=== PATIENT | female | born 1930 | race Caucasian/White ===

== ENCOUNTER 2018-01-08 16:28 | Emergency (ER) | payer OTHER ==
--- NOTE | 2018-01-08 16:38 | PDOC ---
Rapid Medical Evaluation Time Seen by Provider: 01/08/18 16:36 Medical Evaluation: 01/08/18 16:36 I have performed a brief in-person evaluation of this patient. The patient presents with a chief complaint of: Abd pain x 1 week w/ dizziness today. H/o HTN, osteoporosis, chronic KING Pertinent physical exam findings:stable I have ordered the following:ekg/labs The patient will proceed to the ED for further evaluation. Discharge Disposition - Diagnosis Abdominal pain Qualifiers: Abdominal location: epigastric Qualified Code(s): R10.13 - Epigastric pain - Referrals - Patient Instructions - Post Discharge Activity
[2018-01-08 16:39] VITALS: TEMP 98; BMI 17.3
[2018-01-08 17:17] LABS: BASO % 0.9 % (0-2.0); EOS % 2.8 % (0-4.5); HEMATOCRIT 44.5 % (32.4-45.2); HEMOGLOBIN 14.6 GM/dL (10.7-15.3); LYMPH % 37.7 % (8-40); MCH 30.4 pg (25.7-33.7); MCHC 32.7 g/dl (32.0-36.0); MEAN CELL VOLUME 92.8 fl (80-96); MEAN PLT VOLUME 7.2 fl (7.5-11.1); MONO % 9.7 % (3.8-10.2); NEUT % 48.9 % (42.8-82.8); PLATELET COUNT 242 K/MM3 (134-434)
--- NOTE | 2018-01-08 17:20 | PDOC ---
History of Present Illness - General Chief Complaint: Lightheaded Stated Complaint: FATIGUE Time Seen by Provider: 01/08/18 16:36 - History of Present Illness Initial Comments: 01/08/18 17:49 The patient is an 87 year old female with a history of HTN, Headache, Osteoarthritis who presents for evaluation of lightheadedness, headache, and abdominal pain. The patient is accompanied by family who assist in providing the history. They report a several day history of burning epigastric abdominal pain. The patient also has had intermittent headaches through this time and had an episode of lightheadedness when rising from sitting today prompting her presentation to the ED for further evaluation. The patient otherwise denies fevers, chills, SOB, chest pain, nausea, vomiting, or changes with urination or bowel movements. Past History - Past Medical History Allergies/Adverse Reactions: Allergies Allergy/AdvReac Type Severity Reaction Status Date / Time No Known Allergies Allergy Verified 01/08/18 16:39 Home Medications: Ambulatory Orders Acyclovir [Zovirax -] 800 mg PO TID 01/08/18 Amlodipine Besylate 5 mg PO DAILY 01/08/18 Carvedilol 25 mg PO DAILY 01/08/18 Diphenhydramine HCl 25 mg PO DAILY 01/08/18 - Suicide/Smoking/Psychosocial Hx Smoking History: Never smoked Have you smoked in the past 12 months: No Information on smoking cessation initiated: No Hx Alcohol Use: No Drug/Substance Use Hx: No Review of Systems - Review of Systems Comments:: 01/08/18 17:52 Constitutional: No fevers, chills, fatigue, malaise HEENT: No Rhinorrhea, nasal congestion, visual changes Cardiovascular: Lightheadedness, No chest pain, syncope, palpitations, Respiratory: No Cough, SOB, Hemoptysis, Gastrointestinal: Abdominal pain. No Nausea, Vomiting, Constipation, Diarrhea, Melena Genitourinary: No Dysuria, Frequency, Urgency, Hesitancy, Hematuria, Flank pain Musculoskeletal: No Myalgia, arthralgia Skin: No rashes, itching, bruising, pallor Neurologic: Headache. No Dizziness, Numbness, Weakness, or Tingling Psychiatric: No Hallucinations. No SI or HI *Physical Exam - Vital Signs Last Vital Signs Temp Pulse Resp BP Pulse Ox 98.0 F 77 16 153/86 100 01/08/18 16:37 01/08/18 16:37 01/08/18 16:37 01/08/18 16:37 01/08/18 16:37 - Physical Exam Comments: 01/08/18 18:13 General Appearance: Nourished. No Apparent Distress HEENT: EOMI, ANGELINE. No Pharyngeal Erythema, Tonsillar Exudate, Tonsillar Erythema Neck: No Cervical Lymphadenopathy Respiratory/Chest: Lungs Clear, Normal Breath Sounds. No Crackles, Rales, Rhonchi, Wheezing Cardiovascular: Regular Rhythm, Regular Rate. No Murmur, Gallops, Rubs Gastrointestinal/Abdominal: Normal Bowel Sounds, Soft. Mild epigastric tenderness to palpation. No Guarding, Rebound, Musculoskeletal: No CVA Tenderness Extremity: Normal Capillary Refill Integumentary: Normal Color, Dry, Warm Neurologic: network systems operator II-XII NML intact, Fully Oriented, Alert, Normal Mood/Affect, Normal Response, Motor Strength 5/5. Heart Score/ECG Review #1 ECG reviewed & interpreted by me at: 18:29 General ECG Interpretation: Sinus Rhythm, Normal Rate, Normal Intervals, No acute ischemic changes ED Treatment Course - LABORATORY CBC & Chemistry Diagram: 01/08/18 17:01 01/08/18 17:01 Medical Decision Making - Medical Decision Making 01/08/18 17:20 The patient is an 87 year old female with a history of HTN, Headache, Osteoarthritis who presents for evaluation of lightheadedness, headache, and abdominal pain. Given the patient's history and physical exam, we will obtain a cbc, cmp, lipase, troponin, ekg, head ct to evaluate further for possible etologies. We will treat the patient in the meantime with iv fluids, pepcid, tylenol and continue to monitor and reassess while here in the ed 01/08/18 17:21 CBC, cmp, lipase, troponin are unremarkable head CT is unremarkable as read by our radiologist. The patient reports improvement in her symptoms. We are comfortable discharging the patient home with primary care provider follow up. We discussed the results, plan, and return precautions with the patient and her family who voiced understanding and are agreeable with the plan. *DC/Admit/Observation/Transfer Diagnosis at time of Disposition: Lightheadedness Abdominal pain Qualifiers: Abdominal location: epigastric Qualified Code(s): R10.13 - Epigastric pain - Discharge Dispostion Disposition: HOME Condition at time of disposition: Stable Decision to Admit order: No - Referrals Referrals: Valentin Ricci MD [Primary Care Provider] - - Patient Instructions Printed Discharge Instructions: DI for Abdominal Pain-Adult, DI for Headache Additional Instructions: Please return to the ER if you experience concerning or worsening symptoms including worsening abdominal pain, headache, vomiting, or chest pain. Your lab results were normal here in the ED. Your head ct was normal here in the ED. Please call to schedule a follow up appointment with your primary care provider within 2-3 days to discuss your ER visit and further management of your symptoms. Print Language: ISRAELI - Post Discharge Activity
[2018-01-08] MEDS ORDERED: SODIUM CHLORIDE 1,000 ML IV STA (17:30)
[2018-01-08] MEDS ORDERED: FAMOTIDINE 20 MG/50 ML IVPB 20 MG/50 ML MG IVPB ONE ×2 (17:30→17:54)
[2018-01-08] MEDS ORDERED: ACETAMINOPHEN 1000 MG/100 ML VIAL (NON FORMULARY) IVPB ONE (17:32)
--- NOTE | 2018-01-08 17:43 | PDOC ---
Attending Attestation - Resident Resident Name: Elbert Lucianoel - ED Attending Attestation I have performed the following: I have examined & evaluated the patient, The case was reviewed & discussed with the resident, I agree w/resident's findings & plan, Exceptions are as noted - HPI HPI: 01/08/18 17:36 87y F hx of htn, presents with complaint of feeling lightheaded and abdominal pain. pt endorses burning epigastric pain for several days, also endorses mild headaches that are intermittent for the past 4 or 5 days, that are pressure like on the front of her skull but resolve without any treatment. pt denies any associated n/v, blurry vision, double vision, dysarhtria. Pt saw a neurologist but pt states 'they didnt do anything'. The pt also endorses feeling intermittently lightheaded when she stands up htat lasts for a few minutes befor resolving, also without assoicated neuro symptoms. Regarding her epigastric pain, shee stats it is burning in nature, typically worse in the morning and after she eats, denies any associated sob, n/v, diaphoresis, palpitations, cp, back pain, worsening on exertion, leg swelling. Pt denies any dysuria, hematuria, diarrhea, bpr, melena. on exam pt well appearing in no distress card: rrr, no mrg pulm: cta b/l neuro: no facial assymetric, EOMI, strength 5/5 in upper/lower extremities, sensation symmetric in all 4 extermities ent: normal TMs b/l ddx: tension headache, dehdyration epigastric pain - possible gastritis dizziness - ? possible dehydration will obtain head ct, labs including cbc, cmp, trop, ekg, will give tylenol, fluids, pepcid will reassess
[2018-01-08 17:48] LABS: ANION GAP 6 (8-16); BILIRUBIN,TOTAL 0.4 mg/dL (0.2-1.0); BLOOD UREA NITROGEN 11 mg/dL (7-18); CALCIUM 9.5 mg/dL (8.5-10.1); CHLORIDE 108 mmol/L (98-107); CO2 30 mmol/L (21-32); CREATININE 0.9 mg/dL (0.55-1.02); GLUCOSE,RANDOM 113 mg/dL (74-106); POTASSIUM 5.1 mmol/L (3.5-5.1); SGOT/AST 35 U/L (15-37); SGPT/ALT 43 U/L (12-78); SODIUM 144 mmol/L (136-145); TOT PROT 7.6 g/dl (6.4-8.2)
[2018-01-08 17:51] LABS: ALK PHOS 78 U/L (45-117)
[2018-01-08 17:52] LABS: URINE APPEARANCE CLEAR; URINE BILIRUBIN NEGATIVE (<2.0 mg/dL); URINE COLOR COLORLESS; URINE GLUCOSE (UA) NEGATIVE (NEGATIVE); URINE KETONE NEGATIVE (NEGATIVE); URINE LEUK ESTERASE TRACE (NEGATIVE); URINE NITRITE NEGATIVE (NEGATIVE); URINE PROTEIN NEGATIVE (NEGATIVE); URINE UROBILINOGEN NEGATIVE mg/dL (0.2-1.0)
[2018-01-08] MEDS ORDERED: ACETAMINOPHEN INJECTION 100 ML IVPB ONE (17:54)
[2018-01-08 17:56] LABS: LIPASE 354 U/L (73-393)
[2018-01-08 17:58] LABS: EPI CELLS RARE /HPF (FEW); URINE MUCUS RARE
[2018-01-08 19:07] VITALS: BP 152/86; PULSE 76
--- NOTE | 2018-01-10 10:12 | EKG ---
Test Reason : Blood Pressure : / mmHG Vent. Rate : 077 BPM Atrial Rate : 077 BPM P-R Int : 186 ms QRS Dur : 066 ms QT Int : 370 ms P-R-T Axes : 065 053 043 degrees QTc Int : 418 ms NORMAL SINUS RHYTHM NORMAL ECG NO PREVIOUS ECGS AVAILABLE Confirmed by JESSICA MOSER MD ([id number]) on 01/10/2018 10:12:24 AM Referred By: Confirmed By:JESSICA MOSER MD
== END 2018-01-08 19:22 | disposition home or self-care (01) ==
LOC: JER 16:28
PROC: 3E033GC Introduction of Other Therapeutic Substance into Peripheral Vein, Percutaneous Approach (ICD-10-PCS; principal; 2018-01-08)
PROC: 3E033NZ Introduction of Analgesics, Hypnotics, Sedatives into Peripheral Vein, Percutaneous Approach (ICD-10-PCS; 2018-01-08)
DX: R10.13 Epigastric pain (principal); R42 Dizziness and giddiness; I10 Essential (primary) hypertension; M81.0 Age-related osteoporosis without current pathological fracture
CPT/HCPCS: 36415; 70450-TC; 80053; 81003; 81015; 82550; 83690; 84484; 85025; 93005; 93010; 96365; 96375; 99283-25; J0131; J7030

== ENCOUNTER 2020-05-30 10:59 | Emergency (ER) | payer OTHER ==
[2020-05-30 11:24] VITALS: TEMP 98.6; BMI 19.8
[2020-05-30 11:35] LABS: BASO % 1.6 % (0-2.0); EOS % 2.3 % (0-4.5); HEMATOCRIT 45.3 % (32.4-45.2); HEMOGLOBIN 14.7 GM/dL (10.7-15.3); LYMPH % 42.2 % (8-40); MCH 29.9 pg (25.7-33.7); MCHC 32.4 g/dl (32.0-36.0); MEAN CELL VOLUME 92.1 fl (80-96); MEAN PLT VOLUME 7.3 fl (7.5-11.1); MONO % 11.9 % (3.8-10.2); PLATELET COUNT 240 K/MM3 (134-434); RBC 4.92 M/mm3 (3.60-5.2); RDW 15.9 % (11.6-15.6); WHITE BLOOD COUNT 3.5 K/mm3 (4.0-10.0)
[2020-05-30 11:41] LABS: INR 0.93 (0.83-1.09); PROTHROMBIN TIME (PATIENT) 11.5 SEC (9.7-13.0)
[2020-05-30 11:44] LABS: ACTIVATED PTT 29.4 SECONDS (25.2-36.5)
[2020-05-30 11:56] LABS: CHLORIDE 108 mmol/L (98-107); POTASSIUM 4.6 mmol/L (3.5-5.1); SODIUM 141 mmol/L (136-145)
[2020-05-30 11:58] LABS: CALCIUM 9.6 mg/dL (8.5-10.1)
[2020-05-30 11:59] LABS: ANION GAP 3 MMOL/L (8-16); BLOOD UREA NITROGEN 15.2 mg/dL (7-18); CO2 30 mmol/L (21-32); GLUCOSE,RANDOM 89 mg/dL (74-106); MAGNESIUM 2.2 mg/dL (1.8-2.4)
[2020-05-30 12:02] LABS: CREATININE 0.8 mg/dL (0.55-1.3); SGOT/AST 47 U/L (15-37)
[2020-05-30 12:03] LABS: SGPT/ALT 51 U/L (13-61)
[2020-05-30 12:04] LABS: BILIRUBIN,TOTAL 0.4 mg/dL (0.2-1); TOT PROT 7.4 g/dl (6.4-8.2)
[2020-05-30 12:05] LABS: ALK PHOS 89 U/L (45-117)
[2020-05-30 13:10] VITALS: BP 140/75; PULSE 94
[2020-05-30 14:43] LABS: PH,URINE 7.5 (5.0-8.0); URINE APPEARANCE CLEAR; URINE BILIRUBIN NEGATIVE (NEGATIVE); URINE COLOR YELLOW; URINE GLUCOSE (UA) NEGATIVE (NEGATIVE); URINE KETONE NEGATIVE (NEGATIVE); URINE LEUK ESTERASE NEGATIVE (NEGATIVE); URINE NITRITE NEGATIVE (NEGATIVE); URINE PROTEIN NEGATIVE (NEGATIVE); URINE UROBILINOGEN 0.2 mg/dL (0.2-1.0)
== END 2020-05-30 14:37 | disposition home or self-care (01) ==
LOC: JER 10:59
DX: I44.7 Left bundle-branch block, unspecified (principal); R94.31 Abnormal electrocardiogram [ECG] [EKG]
CPT/HCPCS: 36415; 71045-TC-FY; 80053; 81003; 82550; 83735; 84484; 85025; 85610; 85730; 87077; 87086; 93005; 93010; 99285-25

== ENCOUNTER 2020-11-03 02:10 | Inpatient (IN) | payer MEDICARE, OTHER ==
[2020-11-03 02:26] VITALS: BMI 21.4
[2020-11-03] MEDS ORDERED: LACTATED RINGERS SOLUTION 1000 ML INFUS.BAG IV STA (02:47)
[2020-11-03] MEDS ORDERED: DEXAMETHASONE SOD PHOSPHATE 10 MG/1 ML VIAL IVPUSH ONE (02:48)
[2020-11-03] MEDS ORDERED: MAGNESIUM SULF 50% (8.12 MEQ/2 ML-1 GM VIAL) IVPB ONE (02:52)
[2020-11-03] MEDS ORDERED: ACETAMINOPHEN 1000 MG/100 ML VIAL (NON FORMULARY) IVPB ONE (02:53)
[2020-11-03] MEDS ORDERED: SODIUM CHLORIDE 0.9% 500 ML INFUS.BAG IV ONE ×2 (02:53→02:55)
[2020-11-03] MEDS ORDERED: DEXAMETHASONE SOD PHOSPHATE 10 MG/1 ML VIAL ONE (02:56)
[2020-11-03] MEDS ORDERED: ACETAMINOPHEN INJECTION 100 ML IVPB ONE (02:56)
[2020-11-03 03:06] LABS: VENOUS PCO2 43.6 mmHg (38-52); VENOUS PH 7.322 (7.310-7.410)
[2020-11-03] MEDS ORDERED: ASPIRIN 81 MG CHEWABLE TABLETS PO ONE (03:11)
[2020-11-03 03:15] LABS: BASO % 0.4 % (0-2.0); HEMOGLOBIN 15.2 GM/dL (10.7-15.3); LYMPH % 19.8 % (8-40); MCHC 33.1 g/dl (32.0-36.0); MEAN CELL VOLUME 93.6 fl (80-96); MEAN PLT VOLUME 8.2 fl (7.5-11.1); MONO % 11.3 % (3.8-10.2); NEUT % 67.5 % (42.8-82.8); PLATELET COUNT 269 K/MM3 (134-434); RBC 4.92 M/mm3 (3.60-5.2); RDW 16.1 % (11.6-15.6); WHITE BLOOD COUNT 5.8 K/mm3 (4.0-10.0)
[2020-11-03 03:18] LABS: CALCIUM 8.7 mg/dL (8.5-10.1)
[2020-11-03 03:19] LABS: ALBUMIN 3.8 g/dl (3.4-5.0); BLOOD UREA NITROGEN 14.3 mg/dL (7-18)
[2020-11-03 03:21] LABS: BILIRUBIN,DIRECT 0.2 mg/dL (0.0-0.2); INR 0.99 (0.83-1.09); PROTHROMBIN TIME (PATIENT) 12.2 SEC (9.7-13.0)
[2020-11-03 03:22] LABS: CREATININE 0.9 mg/dL (0.55-1.3)
[2020-11-03 03:23] LABS: BILIRUBIN,TOTAL 0.8 mg/dL (0.2-1)
[2020-11-03 03:24] LABS: ACTIVATED PTT 28.8 SECONDS (25.2-36.5); LACTIC ACID 2.1 mmol/L (0.4-2.0); TOT PROT 7.1 g/dl (6.4-8.2)
[2020-11-03] MEDS ORDERED: MAGNESIUM SULFATE IN WATER 2 GM/50 ML IVPB IVPB ONE (03:31)
[2020-11-03] MEDS ORDERED: morphine SULFATE 4 MG/ML VIAL ONE (03:35)
[2020-11-03] MEDS ORDERED: morphine CARPU-JECT 4 MG/1 ML DISP.SYRIN IVPUSH ONE (03:35)
[2020-11-03 04:58] LABS: URINE APPEARANCE CLEAR; URINE BILIRUBIN NEGATIVE (NEGATIVE); URINE COLOR YELLOW; URINE GLUCOSE (UA) NEGATIVE (NEGATIVE); URINE KETONE NEGATIVE (NEGATIVE)
[2020-11-03 04:59] LABS: URINE LEUK ESTERASE NEGATIVE (NEGATIVE); URINE NITRITE NEGATIVE (NEGATIVE); URINE PROTEIN 2+ (NEGATIVE); URINE UROBILINOGEN 0.2 mg/dL (0.2-1.0)
[2020-11-03 05:00] LABS: EPI CELLS 255 /uL (0-25.1); HYALINE CASTS 34 /uL (0-3.1); URINE BACTERIA 290 /uL (0-1359); URINE WBC 45 /uL (0-25.8)
[2020-11-03] MEDS ORDERED: ASPIRIN 81 MG CHEWABLE TABLETS ONE (05:03)
[2020-11-03 05:27] LABS: URINE RBC 162 /uL (0-23.9)
[2020-11-03] MEDS ORDERED: VANCOMYCIN 1,000 MG in DEXTROSE 5%-WATER - 250 ML IVPB ONE (06:02)
[2020-11-03] MEDS ORDERED: PIPERACILLIN/TAZOB 4.5 GM 4.5 GM in DEXTROSE 5%-WATER 100 ML IVPB ONE (06:02)
[2020-11-03] MEDS ORDERED: PIPERACILLIN/TAZOB 4.5 GM 4.5 GM/100 ML BAG IVPB ONE (06:07)
[2020-11-03] MEDS ORDERED: FUROSEMIDE 40 MG/4 ML INJECTABLE VIAL IVPUSH ONE (06:15)
[2020-11-03] MEDS ORDERED: FUROSEMIDE 40 MG/4 ML INJECTABLE VIAL ONE ×2 (06:33→10:30)
[2020-11-03] MEDS ORDERED: VANCOMYCIN 1 GRAM (PRE-DOCKED) 1,000 MG/250 ML BAG IVPB ONE (06:53)
[2020-11-03] MEDS: FUROSEMIDE 40 MG/4 ML INJECTABLE VIAL IVPUSH SCH ×2 (07:30→10:29)
[2020-11-03] MEDS ORDERED: MORPHINE SULFATE 2 MG/ML VIAL IVPUSH PRN (14:02)
[2020-11-03] MEDS ORDERED: HEPARIN NA (PORCINE) 5,000 UNITS/ML 1ML VIAL ONE (14:26)
[2020-11-03] MEDS: HEPARIN NA (PORCINE) 5,000 UNITS/ML 1ML VIAL SQ SCH ×2 (14:35→23:21)
[2020-11-03] MEDS ORDERED: PIPERACILLIN/TAZOB 3.375 GM 3.375 GM/50 ML BAG IVPB ONE (17:47)
[2020-11-03] MEDS ORDERED: PIPERACILLIN/TAZOB 3.375 GM 3.375 GM in DEXTROSE 5%-WATER - 50 ML IVPB SCH (18:00)
[2020-11-03] MEDS: PIPERACILLIN/TAZOB 3.375 GM 3.375 GM in DEXTROSE 5%-WATER - 50 ML IVPB SCH (18:38)
[2020-11-04] MEDS ORDERED: PIPERACILLIN/TAZOBACTAM 3.375 GM VIAL IVPB ONE ×2 (02:18→09:08)
[2020-11-04] MEDS ORDERED: DEXTROSE 5%-WATER - 50 ML IVPB ONE ×2 (02:18→09:08)
[2020-11-04] MEDS: PIPERACILLIN/TAZOB 3.375 GM 3.375 GM in DEXTROSE 5%-WATER - 50 ML IVPB SCH ×2 (02:44→09:55)
[2020-11-04] MEDS: HEPARIN NA (PORCINE) 5,000 UNITS/ML 1ML VIAL SQ SCH ×3 (06:14→21:10)
[2020-11-04 07:49] LABS: BASO % 0.4 % (0-2.0); EOS % 0.1 % (0-4.5); HEMATOCRIT 45.8 % (32.4-45.2); HEMOGLOBIN 15.1 GM/dL (10.7-15.3); LYMPH % 13.2 % (8-40); MCH 30.6 pg (25.7-33.7); MEAN PLT VOLUME 8.4 fl (7.5-11.1); MONO % 12.6 % (3.8-10.2); NEUT % 73.7 % (42.8-82.8); PLATELET COUNT 276 K/MM3 (134-434); RBC 4.93 M/mm3 (3.60-5.2); RDW 16.1 % (11.6-15.6); WHITE BLOOD COUNT 13.1 K/mm3 (4.0-10.0)
[2020-11-04 08:11] LABS: ALBUMIN 3.8 g/dl (3.4-5.0); BLOOD UREA NITROGEN 16.2 mg/dL (7-18); CALCIUM 8.7 mg/dL (8.5-10.1); MAGNESIUM 2.5 mg/dL (1.8-2.4)
[2020-11-04 08:15] LABS: BILIRUBIN,TOTAL 0.7 mg/dL (0.2-1); CREATININE 1.1 mg/dL (0.55-1.3); TOT PROT 7.3 g/dl (6.4-8.2)
[2020-11-04 08:16] LABS: PHOSPHOROUS 3.4 mg/dL (2.5-4.9)
[2020-11-04] MEDS: FUROSEMIDE 40 MG/4 ML INJECTABLE VIAL IVPUSH SCH (09:54)
[2020-11-04] MEDS ORDERED: LOSARTAN POTASSIUM 50 MG TABLET PO SCH (10:00)
[2020-11-05 04:09] LABS: SARS-CoV-2 NAA Not Detected (Not Detected)
[2020-11-05] MEDS: HEPARIN NA (PORCINE) 5,000 UNITS/ML 1ML VIAL SQ SCH ×3 (06:53→22:29)
[2020-11-05] MEDS: LOSARTAN POTASSIUM 50 MG TABLET PO SCH (09:50)
[2020-11-05] MEDS: FUROSEMIDE 40 MG/4 ML INJECTABLE VIAL IVPUSH SCH (09:50)
[2020-11-05] MEDS: POLYETHYLENE GLYCOL 3350 119 GM BTL PO SCH (11:48)
[2020-11-05] MEDS: ACETAMINOPHEN 325 MG TABLET (FP) PO PRN (22:29)
[2020-11-06] MEDS: HEPARIN NA (PORCINE) 5,000 UNITS/ML 1ML VIAL SQ SCH ×3 (06:53→22:32)
[2020-11-06 07:21] LABS: BASO % 1.1 % (0-2.0); EOS % 3.2 % (0-4.5); HEMATOCRIT 45.4 % (32.4-45.2); HEMOGLOBIN 14.9 GM/dL (10.7-15.3); LYMPH % 25.8 % (8-40); MCH 30.4 pg (25.7-33.7); MCHC 32.7 g/dl (32.0-36.0); MEAN CELL VOLUME 93.1 fl (80-96); MEAN PLT VOLUME 8.4 fl (7.5-11.1); MONO % 12.1 % (3.8-10.2); NEUT % 57.8 % (42.8-82.8); PLATELET COUNT 240 K/MM3 (134-434); RBC 4.88 M/mm3 (3.60-5.2); WHITE BLOOD COUNT 5.1 K/mm3 (4.0-10.0)
[2020-11-06 07:55] LABS: CALCIUM 8.5 mg/dL (8.5-10.1)
[2020-11-06 07:56] LABS: BLOOD UREA NITROGEN 20.4 mg/dL (7-18)
[2020-11-06 07:59] LABS: CREATININE 0.8 mg/dL (0.55-1.3)
[2020-11-06 08:00] LABS: BILIRUBIN,TOTAL 0.6 mg/dL (0.2-1); TOT PROT 5.9 g/dl (6.4-8.2)
[2020-11-06] MEDS: POLYETHYLENE GLYCOL 3350 119 GM BTL PO SCH (09:37)
[2020-11-06] MEDS: FUROSEMIDE 40 MG/4 ML INJECTABLE VIAL IVPUSH SCH ×2 (09:37→17:31)
[2020-11-06] MEDS: LOSARTAN POTASSIUM 50 MG TABLET PO SCH (09:37)
[2020-11-06] MEDS: ATORVASTATIN CA 10 MG TABLET (FP) PO SCH (22:32)
[2020-11-07] MEDS: FUROSEMIDE 40 MG/4 ML INJECTABLE VIAL IVPUSH SCH ×2 (06:58→18:09)
[2020-11-07] MEDS: HEPARIN NA (PORCINE) 5,000 UNITS/ML 1ML VIAL SQ SCH ×3 (06:58→21:37)
[2020-11-07 08:06] LABS: CALCIUM 8.4 mg/dL (8.5-10.1)
[2020-11-07 08:07] LABS: ALBUMIN 3.3 g/dl (3.4-5.0); BLOOD UREA NITROGEN 20.4 mg/dL (7-18)
[2020-11-07 08:09] LABS: CREATININE 0.8 mg/dL (0.55-1.3)
[2020-11-07 08:10] LABS: BILIRUBIN,TOTAL 0.5 mg/dL (0.2-1); TOT PROT 6.3 g/dl (6.4-8.2)
[2020-11-07] MEDS: LOSARTAN POTASSIUM 50 MG TABLET PO SCH (09:41)
[2020-11-07] MEDS: POLYETHYLENE GLYCOL 3350 119 GM BTL PO SCH (09:41)
[2020-11-07 16:08] LABS: HEP B CORE AB, TOT Positive (Negative)
[2020-11-07] MEDS: ATORVASTATIN CA 10 MG TABLET (FP) PO SCH (21:37)
[2020-11-08] MEDS: HEPARIN NA (PORCINE) 5,000 UNITS/ML 1ML VIAL SQ SCH ×3 (07:00→22:42)
[2020-11-08] MEDS: FUROSEMIDE 40 MG/4 ML INJECTABLE VIAL IVPUSH SCH ×2 (07:00→17:24)
[2020-11-08 08:30] LABS: CALCIUM 8.8 mg/dL (8.5-10.1)
[2020-11-08 08:31] LABS: ALBUMIN 3.3 g/dl (3.4-5.0)
[2020-11-08 08:34] LABS: CREATININE 0.7 mg/dL (0.55-1.3)
[2020-11-08 08:35] LABS: BILIRUBIN,TOTAL 0.6 mg/dL (0.2-1); TOT PROT 6.2 g/dl (6.4-8.2)
[2020-11-08] MEDS: POLYETHYLENE GLYCOL 3350 119 GM BTL PO SCH (09:34)
[2020-11-08] MEDS: LOSARTAN POTASSIUM 50 MG TABLET PO SCH (09:34)
[2020-11-08] MEDS: ATORVASTATIN CA 10 MG TABLET (FP) PO SCH (22:42)
[2020-11-09] MEDS: ACETAMINOPHEN 325 MG TABLET (FP) PO PRN (01:57)
[2020-11-09] MEDS: HEPARIN NA (PORCINE) 5,000 UNITS/ML 1ML VIAL SQ SCH ×2 (06:35→13:33)
[2020-11-09] MEDS: FUROSEMIDE 40 MG/4 ML INJECTABLE VIAL IVPUSH SCH (06:36)
[2020-11-09 08:17] LABS: ALBUMIN 3.3 g/dl (3.4-5.0); BLOOD UREA NITROGEN 25.1 mg/dL (7-18); CALCIUM 9.1 mg/dL (8.5-10.1)
[2020-11-09 08:21] LABS: CREATININE 0.9 mg/dL (0.55-1.3)
[2020-11-09 08:22] LABS: BILIRUBIN,TOTAL 0.6 mg/dL (0.2-1); TOT PROT 6.5 g/dl (6.4-8.2)
[2020-11-09] MEDS: POLYETHYLENE GLYCOL 3350 119 GM BTL PO SCH (10:23)
[2020-11-09] MEDS: LOSARTAN POTASSIUM 50 MG TABLET PO SCH (10:23)
[2020-11-09 12:07] VITALS: BP 92/61; PULSE 87; TEMP 98.3
== END 2020-11-09 14:30 | disposition home health service (06) | DRG 292 ==
LOC: JER 02:10 → JERBED 06:07 → J4W 22:50
PROVIDERS: ADMIT Hospitalist; ATTEND Family Medicine
DX: I11.0 Hypertensive heart disease with heart failure (principal); I24.8 Other forms of acute ischemic heart disease; R64 Cachexia; J98.11 Atelectasis; I50.23 Acute on chronic systolic (congestive) heart failure; R09.02 Hypoxemia; E78.5 Hyperlipidemia, unspecified; Z68.21 Body mass index [BMI] 21.0-21.9, adult; R10.13 Epigastric pain; D72.829 Elevated white blood cell count, unspecified; K59.00 Constipation, unspecified
CPT/HCPCS: 36415; 71045-TC-FY; 71046-TC-FY; 71275-TC; 72191-TC; 74175-TC; 76705-TC; 80053; 80061; 81003; 82248; 82550; 82728; 82803; 83036; 83605; 83615; 83721; 83735; 84100; 84443; 84479; 84484; 85025; 85379; 85610; 85730; 86140; 86704; 86706; 86707; 86708; 86709; 86803; 87040; 87086; 87340; 87804; 93005; 93010; 93306-TC; 97116-GP; 97161-GP; 99285-25; C9803; J0131; J1100; J1644; Q9967; U0003; U0005

== ENCOUNTER 2020-11-28 20:51 | Emergency (ER) | payer OTHER ==
[2020-11-28 21:06] VITALS: BP 112/64; PULSE 102; TEMP 99.6; BMI 18.1
[2020-11-28] MEDS ORDERED: ACETAMINOPHEN 1000 MG/100 ML VIAL (NON FORMULARY) IVPB ONE (22:06)
[2020-11-28] MEDS ORDERED: ACETAMINOPHEN INJECTION 100 ML IVPB ONE (22:09)
[2020-11-28 23:03] LABS: BASO % 1.3 % (0-2.0); EOS % 0.8 % (0-4.5); HEMATOCRIT 43.3 % (32.4-45.2); HEMOGLOBIN 14.6 GM/dl (10.7-15.3); LYMPH % 18.4 % (8-40); MCH 30.9 pg (25.7-33.7); MCHC 33.8 g/dl (32.0-36.0); MEAN CELL VOLUME 91.2 fl (80-96); MEAN PLT VOLUME 7.6 fl (7.5-11.1); NEUT % 71.5 % (42.8-82.8); PLATELET COUNT 264 K/MM3 (134-434); RBC 4.75 M/mm3 (3.60-5.2); WHITE BLOOD COUNT 6.8 K/mm3 (4.0-10.8)
[2020-11-28 23:15] LABS: ALBUMIN 3.5 g/dl (3.4-5.0); BILIRUBIN,TOTAL 0.8 mg/dl (0.2-1); CALCIUM 8.8 mg/dl (8.5-10); CREATININE 0.9 mg/dl (0.55-1.3); TOT PROT 6.2 g/dl (6.4-8.2)
[2020-11-29] MEDS ORDERED: CEPHALEXIN MONOHYDRATE 250 MG CAPSULE (FP) PO ONE (00:09)
[2020-11-29] MEDS ORDERED: CEPHALEXIN MONOHYDRATE 250 MG CAPSULE (FP) ONE (00:11)
== END 2020-11-29 00:42 | disposition home or self-care (01) ==
LOC: FER 20:51
PROC: 3E0333Z Introduction of Anti-inflammatory into Peripheral Vein, Percutaneous Approach (ICD-10-PCS; principal; 2020-11-28)
DX: L03.115 Cellulitis of right lower limb (principal)
CPT/HCPCS: 36415; 80053; 85025; 93971-TC; 99284-25; J0131

== ENCOUNTER 2021-11-30 12:53 | Inpatient (IN) | payer MEDICARE, OTHER ==
[2021-11-30] MEDS ORDERED: ACETAMINOPHEN 1000 MG/100 ML BAG IVPB ONE (13:54)
[2021-11-30] MEDS ORDERED: SODIUM CHLORIDE 0.9% 500 ML INFUS.BAG IV ONE (13:54)
[2021-11-30] MEDS ORDERED: ACETAMINOPHEN INJECTION 100 ML IVPB ONE (13:59)
[2021-11-30 15:21] LABS: URINE APPEARANCE CLEAR; URINE BILIRUBIN NEGATIVE (NEGATIVE); URINE COLOR YELLOW; URINE GLUCOSE (UA) NEGATIVE (NEGATIVE); URINE KETONE NEGATIVE (NEGATIVE); URINE LEUK ESTERASE NEGATIVE (NEGATIVE); URINE NITRITE NEGATIVE (NEGATIVE); URINE PROTEIN NEGATIVE (NEGATIVE); URINE UROBILINOGEN 0.2 mg/dL (0.2-1.0)
[2021-11-30 15:22] LABS: BASO % 0.4 % (0-2.0); EOS % 0.7 % (0-4.5); HEMOGLOBIN 14.3 GM/dL (10.7-15.3); LYMPH % 43.3 % (8-40); MCH 30.5 pg (25.7-33.7); MCHC 33.3 g/dl (32.0-36.0); MEAN CELL VOLUME 91.6 fl (80-96); MEAN PLT VOLUME 7.5 fl (7.5-11.1); MONO % 12.5 % (3.8-10.2); NEUT % 43.1 % (42.8-82.8); PLATELET COUNT 195 10^3/uL (134-434); RDW 14.6 % (11.6-15.6); WHITE BLOOD COUNT 2.9 K/mm3 (4.0-10.0)
[2021-11-30 15:25] LABS: ALBUMIN 4.2 g/dl (3.4-5.0); CALCIUM 9.6 mg/dL (8.5-10.1)
[2021-11-30 15:26] LABS: BLOOD UREA NITROGEN 13.1 mg/dL (7-18)
[2021-11-30 15:28] LABS: CREATININE 0.7 mg/dL (0.55-1.3)
[2021-11-30 15:30] LABS: BILIRUBIN,TOTAL 0.5 mg/dL (0.2-1); TOT PROT 7.4 g/dl (6.4-8.2)
[2021-11-30 15:45] LABS: ACTIVATED PTT 37.2 SECONDS (25.2-36.5); INR 0.96 (0.83-1.09)
[2021-11-30] MEDS ORDERED: ACETAMINOPHEN 1000 MG/100 ML BAG IVPB PRN ×2 (21:55→22:34)
[2021-11-30] MEDS ORDERED: DOCUSATE SODIUM 100 MG CAPSULE (FP) PO ONE (22:23)
[2021-11-30] MEDS ORDERED: SENNOSIDES 8.6MG TABLET (FP) PO ONE (22:23)
[2021-11-30] MEDS: SENNOSIDES 8.6MG TABLET (FP) PO SCH (22:28)
[2021-11-30] MEDS: DOCUSATE SODIUM 100 MG CAPSULE (FP) PO SCH (22:28)
[2021-11-30] MEDS: SACUBITRIL/VALSARTAN 97 MG-103 MG TABLET PO SCH (23:39)
[2021-12-01] MEDS ORDERED: ACETAMINOPHEN INJECTION 100 ML IVPB ONE (00:56)
[2021-12-01] MEDS: POLYETHYLENE GLYCOL (HEALTHYLAX) 3350 17 GM PACKET PO SCH (09:37)
[2021-12-01] MEDS: ENOXAPARIN NA (PORCINE) 40 MG/0.4 ML DISP.SYRIN SQ SCH (09:37)
[2021-12-01] MEDS: PANTOPRAZOLE 40 MG TABLET PO SCH (09:37)
[2021-12-01] MEDS: HYDROCHLOROTHIAZIDE 25 MG TABLET (FP) PO SCH (09:38)
[2021-12-01] MEDS: metoPROLOL SUCCINATE 25 MG TAB.SR.24H (FP) PO SCH (09:39)
[2021-12-01] MEDS: ASPIRIN COATED 81 MG TABLET.EC PO SCH (09:39)
[2021-12-01] MEDS: CLOPIDOGREL BISULFATE 75 MG TABLET (FP) PO SCH (09:41)
[2021-12-01] MEDS: DOCUSATE SODIUM 100 MG CAPSULE (FP) PO SCH ×2 (09:42→22:21)
[2021-12-01] MEDS: SACUBITRIL/VALSARTAN 97 MG-103 MG TABLET PO SCH ×2 (09:42→22:21)
[2021-12-01 09:50] LABS: HEMATOCRIT 42.6 % (32.4-45.2); HEMOGLOBIN 14.3 GM/dL (10.7-15.3); MCH 30.5 pg (25.7-33.7); MCHC 33.6 g/dl (32.0-36.0); MEAN CELL VOLUME 90.9 fl (80-96); RBC 4.69 M/mm3 (3.60-5.2); WHITE BLOOD COUNT 3.3 K/mm3 (4.0-10.0)
[2021-12-01 09:51] LABS: BASO % 0.4 % (0-2.0); EOS % 0.9 % (0-4.5); LYMPH % 32.9 % (8-40); MEAN PLT VOLUME 7.4 fl (7.5-11.1); MONO % 10.9 % (3.8-10.2); NEUT % 54.9 % (42.8-82.8); PLATELET COUNT 215 10^3/uL (134-434); RDW 14.4 % (11.6-15.6)
[2021-12-01 10:09] LABS: CALCIUM 9.4 mg/dL (8.5-10.1)
[2021-12-01 10:10] LABS: ALBUMIN 4.2 g/dl (3.4-5.0); BLOOD UREA NITROGEN 8.8 mg/dL (7-18); MAGNESIUM 2.2 mg/dL (1.8-2.4)
[2021-12-01 10:12] LABS: CREATININE 0.6 mg/dL (0.55-1.3); PHOSPHOROUS 3.1 mg/dL (2.5-4.9)
[2021-12-01 10:14] LABS: BILIRUBIN,TOTAL 0.8 mg/dL (0.2-1)
[2021-12-01 18:08] VITALS: BMI 16.2
[2021-12-01] MEDS: ROSUVASTATIN CA 20 MG TABLET PO SCH (22:21)
[2021-12-01] MEDS: SENNOSIDES 8.6MG TABLET (FP) PO SCH (22:21)
[2021-12-02] MEDS: metoPROLOL SUCCINATE 25 MG TAB.SR.24H (FP) PO SCH (09:23)
[2021-12-02] MEDS: PANTOPRAZOLE 40 MG TABLET PO SCH (09:24)
[2021-12-02] MEDS: CLOPIDOGREL BISULFATE 75 MG TABLET (FP) PO SCH (09:24)
[2021-12-02] MEDS: HYDROCHLOROTHIAZIDE 25 MG TABLET (FP) PO SCH (09:24)
[2021-12-02] MEDS: ASPIRIN COATED 81 MG TABLET.EC PO SCH (09:24)
[2021-12-02] MEDS: DOCUSATE SODIUM 100 MG CAPSULE (FP) PO SCH ×2 (09:24→21:13)
[2021-12-02] MEDS: SACUBITRIL/VALSARTAN 97 MG-103 MG TABLET PO SCH ×2 (09:25→21:13)
[2021-12-02] MEDS: ENOXAPARIN NA (PORCINE) 40 MG/0.4 ML DISP.SYRIN SQ SCH (09:26)
[2021-12-02] MEDS: POLYETHYLENE GLYCOL (HEALTHYLAX) 3350 17 GM PACKET PO SCH (09:26)
[2021-12-02 10:12] LABS: BASO % 0.4 % (0-2.0); EOS % 1.5 % (0-4.5); HEMATOCRIT 42.4 % (32.4-45.2); HEMOGLOBIN 14.4 GM/dL (10.7-15.3); MCH 31.1 pg (25.7-33.7); MEAN CELL VOLUME 91.4 fl (80-96); MEAN PLT VOLUME 7.1 fl (7.5-11.1); MONO % 10.2 % (3.8-10.2); NEUT % 49.9 % (42.8-82.8); PLATELET COUNT 176 10^3/uL (134-434); RBC 4.63 M/mm3 (3.60-5.2); WHITE BLOOD COUNT 2.9 K/mm3 (4.0-10.0)
[2021-12-02 10:19] LABS: ALBUMIN 3.7 g/dl (3.4-5.0); BLOOD UREA NITROGEN 12.9 mg/dL (7-18); CALCIUM 9.4 mg/dL (8.5-10.1)
[2021-12-02 10:22] LABS: CREATININE 0.8 mg/dL (0.55-1.3)
[2021-12-02 10:24] LABS: BILIRUBIN,TOTAL 0.8 mg/dL (0.2-1)
[2021-12-02 10:26] LABS: TOT PROT 6.5 g/dl (6.4-8.2)
[2021-12-02] MEDS: SODIUM CHLORIDE 1,000 ML IV SCH (15:01)
[2021-12-02] MEDS: SENNOSIDES 8.6MG TABLET (FP) PO SCH (21:13)
[2021-12-02] MEDS: ROSUVASTATIN CA 20 MG TABLET PO SCH (21:13)
[2021-12-03] MEDS: SODIUM CHLORIDE 1,000 ML IV SCH ×2 (01:31→17:15)
[2021-12-03] MEDS: CLOPIDOGREL BISULFATE 75 MG TABLET (FP) PO SCH (09:26)
[2021-12-03] MEDS: ENOXAPARIN NA (PORCINE) 40 MG/0.4 ML DISP.SYRIN SQ SCH (09:26)
[2021-12-03] MEDS: PANTOPRAZOLE 40 MG TABLET PO SCH (09:26)
[2021-12-03] MEDS: POLYETHYLENE GLYCOL (HEALTHYLAX) 3350 17 GM PACKET PO SCH (09:26)
[2021-12-03] MEDS: ASPIRIN COATED 81 MG TABLET.EC PO SCH (09:26)
[2021-12-03] MEDS: DOCUSATE SODIUM 100 MG CAPSULE (FP) PO SCH ×2 (09:26→21:58)
[2021-12-03] MEDS: metoPROLOL SUCCINATE 25 MG TAB.SR.24H (FP) PO SCH (09:26)
[2021-12-03] MEDS: SACUBITRIL/VALSARTAN 97 MG-103 MG TABLET PO SCH ×2 (09:28→22:00)
[2021-12-03 09:39] LABS: HEMATOCRIT 39.9 % (32.4-45.2); HEMOGLOBIN 13.6 GM/dL (10.7-15.3); MCH 30.9 pg (25.7-33.7); MEAN CELL VOLUME 90.8 fl (80-96); MEAN PLT VOLUME 7.1 fl (7.5-11.1); PLATELET COUNT 170 10^3/uL (134-434); RDW 14.8 % (11.6-15.6)
[2021-12-03 10:10] LABS: ALBUMIN 3.5 g/dl (3.4-5.0); CALCIUM 8.9 mg/dL (8.5-10.1)
[2021-12-03 10:11] LABS: BLOOD UREA NITROGEN 9.2 mg/dL (7-18)
[2021-12-03 10:14] LABS: CREATININE 0.6 mg/dL (0.55-1.3)
[2021-12-03 10:15] LABS: BILIRUBIN,TOTAL 0.8 mg/dL (0.2-1); TOT PROT 6.2 g/dl (6.4-8.2)
[2021-12-03] MEDS: ROSUVASTATIN CA 20 MG TABLET PO SCH (21:58)
[2021-12-03] MEDS: SENNOSIDES 8.6MG TABLET (FP) PO SCH (21:58)
[2021-12-04] MEDS: SODIUM CHLORIDE 1,000 ML IV SCH (05:13)
[2021-12-04] MEDS: CLOPIDOGREL BISULFATE 75 MG TABLET (FP) PO SCH (09:45)
[2021-12-04] MEDS: PANTOPRAZOLE 40 MG TABLET PO SCH (09:45)
[2021-12-04] MEDS: metoPROLOL SUCCINATE 25 MG TAB.SR.24H (FP) PO SCH (09:45)
[2021-12-04] MEDS: ASPIRIN COATED 81 MG TABLET.EC PO SCH (09:45)
[2021-12-04] MEDS: POLYETHYLENE GLYCOL (HEALTHYLAX) 3350 17 GM PACKET PO SCH (09:45)
[2021-12-04] MEDS: DOCUSATE SODIUM 100 MG CAPSULE (FP) PO SCH (09:45)
[2021-12-04] MEDS: SACUBITRIL/VALSARTAN 97 MG-103 MG TABLET PO SCH (09:46)
[2021-12-04] MEDS: ENOXAPARIN NA (PORCINE) 40 MG/0.4 ML DISP.SYRIN SQ SCH (09:46)
[2021-12-04] MEDS ORDERED: SIMETHICONE 80 MG TAB.CHEW (FP) PO PRN (11:20)
[2021-12-04 12:58] VITALS: BP 127/59; PULSE 83; TEMP 97.8
== END 2021-12-04 15:00 | disposition home or self-care (01) | DRG 392 ==
LOC: JER 12:53 → JERBED 19:00 → OBSVTOIN 20:56 → J5S 12-01 02:33
PROVIDERS: ADMIT Internal Medicine; ATTEND Internal Medicine
DX: K57.90 Diverticulosis of intestine, part unspecified, without perforation or abscess without bleeding (principal); I50.22 Chronic systolic (congestive) heart failure; N13.2 Hydronephrosis with renal and ureteral calculous obstruction; K59.00 Constipation, unspecified; E78.5 Hyperlipidemia, unspecified; I25.10 Atherosclerotic heart disease of native coronary artery without angina pectoris; I11.0 Hypertensive heart disease with heart failure; D70.9 Neutropenia, unspecified; N28.1 Cyst of kidney, acquired; R94.31 Abnormal electrocardiogram [ECG] [EKG]; I95.1 Orthostatic hypotension
CPT/HCPCS: 36415; 71045-TC-FY; 74176-TC; 76775-TC; 80053; 81003; 83605; 83690; 83735; 84100; 84484; 85025; 85027; 85610; 85730; 86850; 86900; 86901; 87040; 87086; 93005; 93010; 99285-25; C9803-CS; G0378; U0003; U0005